=== PATIENT | female | born 1980 | race Caucasian/White ===

== ENCOUNTER 2023-09-23 08:39 | Outpatient (REF) | payer BC, SELFPAY ==
--- NOTE | 2023-09-23 08:30 | PAPFT_PTH ---
PATIENT: April Beach LOC: [facility] U#:[id number] AGE/SX: 43/F ROOM: RE09/23/[address]: Dallin Louie DNP : 1980 BED: DIS: 09/23/2023 SPEC #: [id number] RECD: 09/23/23 13:10 STATUS: [facility] #: [id number] SHANTEL: 09/23/23 08:[address]: Dallin Morales DEPT: [facility] Cytology RECD BY: Emma Zepeda Tissues: 1 - CX/ENDOCX FOR PAP SMEARS Procedures: PAP THIN PREP/[facility] Screening HPV DNA PROBE Comments: [id number]
== END 2023-09-23 08:40 | disposition home or self-care (01) ==
LOC: LBN 08:39
PROVIDERS: PCP Nurse Practitioner Family; Visit Provider Nurse Practitioner Family
DX: Z12.4 Encounter for screening for malignant neoplasm of cervix (principal); G47.9 Sleep disorder, unspecified
CPT/HCPCS: 88142; 87624